=== PATIENT | male | born 1985 | race Caucasian/White ===

== ENCOUNTER 2018-05-08 00:25 | Emergency (ER) | payer SELFPAY ==
[~2018-05-08] VITALS: Ht 182.9 cm; Wt 90.7 kg
[2018-05-08 00:29] VITALS: BP_SYST 154
== END 2018-05-08 00:36 ==
LOC: SED 00:25
DX: Z04.1 Encounter for examination and observation following transport accident (principal); V43.52XA Car driver injured in collision with other type car in traffic accident, initial encounter; Y93.89 Activity, other specified; Y92.410 Unspecified street and highway as the place of occurrence of the external cause; Y99.8 Other external cause status
CPT/HCPCS: 99283